=== PATIENT | male | born 1950 | race Caucasian/White ===

== ENCOUNTER 2019-02-10 10:14 | Emergency (ER) | payer MEDICARE, BC ==
[2019-02-10 11:19] VITALS: BP 128/83
--- NOTE | 2019-02-10 12:11 | UC ---
Respiratory Complaint HPI - HPI Summary HPI Summary: cough x 1 week cough is productive, with yellow sputum nasal congestion , pnd , no fever, no chills , + body aches - History of Current Complaint Chief Complaint: UCRespiratory Stated Complaint: ST,COUGH,CHEST CONGESTION Time Seen by Provider: 02/10/19 12:02 Hx Obtained From: Patient Onset/Duration: Gradual Onset, Lasting Weeks - 1, Still Present Timing: Constant Severity Initially: Moderate Severity Currently: Moderate Pain Intensity: 1 Character: Cough: Productive Aggravating Factors: Exertion, Deep Breaths Alleviating Factors: Nothing Associated Signs And Symptoms: Positive: Chills, URI, Nasal Congestion. Negative: Dyspnea, Fever, Pleuritic Chest Pain, Wheezing - Allergies/Home Medications Allergies/Adverse Reactions: Allergies Allergy/AdvReac Type Severity Reaction Status Date / Time Penicillins Allergy Unknown Verified 02/10/19 11:20 Reaction Details v-cillin Allergy See Comment Uncoded 02/10/19 11:20 Home Medications: Home Medications Aspirin 81 mg PO DAILY 02/10/19 [History Confirmed 02/10/19] Atorvastatin Calcium [Lipitor] 40 mg PO DAILY 02/10/19 [History Confirmed ] Bisoprolol 10(NF) [Zebeta 10 MG(NF)] 25 mg PO DAILY 02/10/19 [History Confirmed 02/10/19] Lisinopril [Lisinopril 2.5 MG-] 2.5 mg PO DAILY 02/10/19 [History Confirmed 12/30] PMH/Surg Hx/FS Hx/Imm Hx Cardiovascular History: Cardiac Disease, Hypertension, Myocardial Infarction - Surgical History Surgical History: Yes Surgery Procedure, Year, and Place: hernia. heart surgery - Family History Known Family History: Positive: Hypertension - Social History Alcohol Use: Weekly Substance Use Type: None Smoking Status (MU): Never Smoked Tobacco Review of Systems All Other Systems Reviewed And Are Negative: Yes Constitutional: Positive: Chills, Fatigue Skin: Positive: Negative Eyes: Positive: Negative ENT: Positive: Sore Throat, Nasal Discharge Respiratory: Positive: Cough Cardiovascular: Positive: Negative Genitourinary: Positive: Negative Is Patient Immunocompromised?: No Physical Exam Vital Signs: Initial Vital Signs Temp 98 F 02/10/19 11:15 Pulse 56 02/10/19 11:15 Resp 18 02/10/19 11:15 BP 128/83 02/10/19 11:15 Pulse Ox 97 02/10/19 11:15 Respiratory Course/Dx - Differential Dx/Diagnosis Provider Diagnosis: URI (upper respiratory infection) Discharge - Sign-Out/Discharge Documenting (check all that apply): Patient Departure All imaging exams completed and their final reports reviewed: No Studies - Discharge Plan Condition: Stable Disposition: HOME Patient Education Materials: Upper Respiratory Infection (DC) Referrals: No Primary Care Phys,NOPCP [Primary Care Provider] - If Needed - Billing Disposition and Condition Condition: STABLE Disposition: Home
== END 2019-02-10 12:16 | disposition home or self-care (01) ==
LOC: UCCORT 10:14
DX: J06.9 Acute upper respiratory infection, unspecified (principal); R05 Cough; R09.81 Nasal congestion; Z88.0 Allergy status to penicillin; Z79.82 Long term (current) use of aspirin
CPT/HCPCS: 99201; G0463